=== PATIENT | female | born 1995 | race Caucasian/White ===

== ENCOUNTER 2018-05-07 12:58 | Inpatient (IN) | payer OTHER, MEDICAID, SELFPAY ==
[2018-05-07] VITALS (7 sets, daily range): BP systolic 92–116; BP diastolic 59–75; PULSE 51–59; RESP 12–17; TEMP 36.3–36.6; O2SAT 96–99
--- NOTE | 2018-05-07 14:22 | PM.PREOP ---
Pre-operative Note Interval Note Pre-op Check: Yes History & Physical exam performed today by Physician Changes: No
[2018-05-07] MEDS: LACTATED RINGERS 1,000 ML 100 ML IV ×3 (14:25→17:00)
[2018-05-07 14:30] LABS: Add Manual Diff / Slide Review NO; Basophils Percent Auto 0.6 % (0-2); Eosinophils Percent Auto 0.1 % (2-4); Hematocrit 34.2 % (36-46); Hemoglobin 11.5 g/dL (12.0-16.0); Lymphocytes Percent Auto 9.9 % (25-40); Mean Corpuscular HGB Conc 33.6 % (30-36); Mean Corpuscular Hemoglobin 29.7 PG (26-34); Mean Corpuscular Volume 88.4 fL (80-100); Monocytes Percent Auto 6.1 % (3-14); Neutrophils Absolute Auto 13100 /uL (1500-7000); Neutrophils Percent Auto 83.3 % (50-75); Platelet Count 279 X10^3/uL (150-400); Red Blood Cell Count 3.87 X10^6/uL (4.0-5.2); Red Cell Distribution Width 12.6 % (11.6-14.8); White Blood Cell Count 15.8 X10^3/uL (4.5-11.0)
--- NOTE | 2018-05-07 15:31 | SUR.OPER ---
Viable male born at 15:34. Placenta and cord blood tubes (x2) sent with L&D RN.
[2018-05-07] MEDS: CEFAZOLIN 1 GM VIAL IV (15:42)
--- NOTE | 2018-05-07 16:11 | PM.GYNOP.1 ---
Operative Date/Time/Diagnoses Date of procedure: 05/07/18 Time of procedure: 16:11 Pre-op diagnosis: 37 and 6 7th weeks Persistent breech presentation Spontaneous rupture of membranes Post-op diagnosis: same Procedure: Procedures Operation Date: 05/07/18 15:00 Actual Procedures Side Surgeon p Section Dorene Hutchins MD Indications: 37 and 6 /7th weeks gestation Persistent breech presentation Spontaneous rupture of membranes Surgeon: Dorene Hutchins Anesthesia Type: Spinal (With Duramorph) Operative Notes Closure Type: primary Specimen(s): other (Placenta and cord blood) Applied: catheter Estimated blood loss (mL): 350 Blood products transfused: none Procedure in detail: The patient was taken to the operating room where she was placed in the seated position. Spinal anesthesia was administered. She was then placed in the dorsal supine position with a leftward tilt. She was prepped and draped in the usual sterile fashion. A timeout was performed. After spinal analgesia was found to be adequate, a Pfannenstiel skin incision was made 2 fingerbreadths above the pubic symphysis and carried through to the underlying layer fascia. The fascia was nicked in the midline, and the incision extended bilaterally with the Joseph scissors. The superior aspect of the fascial incision was grasped with a [place] clamps, elevated, and the underlying rectus muscles dissected off sharply and bluntly. Attention was then turned to the inferior aspect of this incision which in a similar fashion was grasped with a [place] clamps, elevated, and the underlying rectus muscles dissected off sharply and bluntly. The rectus muscles were in the midline. The peritoneum was identified, grasped between 2 hemostats, and entered sharply with the Metzenbaum scissors. This incision was extended superiorly and inferiorly with good visualization of the bladder. The bladder blade was inserted. The vesicouterine peritoneum was identified, grasped with the pickup, and entered sharply with the Metzenbaum scissors. This incision was extended bilaterally, and the bladder flap was created digitally. The bladder blade was reinserted. The lower uterine segment was incised in a transverse fashion with the scalpel. Upon entering the amniotic sac there was a small amount of moderate stained amniotic fluid amniotic fluid. The was delivered by total breech extraction The nose and mouth were suctioned with bulb suction. The cord was double clamped and cut. The was handed off to waiting RN and RT. The placenta was delivered manually. The uterus was cleared of all clots and debris. The uterine incision was repaired with #1 chromic in a running interlocking fashion, and a second layer the same suture was used for an imbricating layer. Hemo stasis was achieved. The tubes and ovaries were examined and were found to be normal. The gutters were cleared of all clots and debris. The bladder flap was reapproximated using 2-0 Vicryl in a running fashion. The parietal peritoneum was closed using 2-0 Vicryl in a running fashion. The fascia was reapproximated using 0 Vicryl in a running fashion. Subcutaneous layer was copiously irrigated with warm normal saline. 3 simple interrupted sutures of 3-0 Vicryl were placed to reapproximate the subcutaneous layer. The skin was closed with 4-0 undyed Vicryl in a subcuticular fashion. Steri-Strips were placed. Telfa and ABD were placed. MediPort tape was placed. The uterus was expressed of a small amount of old blood. Sponge, lap, and instrument counts were correct x-2. The patient tolerated the procedure well, and was taken to PACU in stable condition. Complications: none Post-operative Condition: stable Disposition: PACU Plan for aftercare: To Center after recovery
--- NOTE | 2018-05-07 16:39 | SUR.PHASEI ---
stable pacu stay report called to tenisha foster transfered.
--- NOTE | 2018-05-07 16:53 | SUR.PHASEI ---
pt left in stable condition.
[2018-05-07] MEDS: KETOROLAC 30 MG/ML VIAL IV (22:00)
[2018-05-08] MEDS: OXYCODONE/ACETAMINOPHEN 5/325 TABLET 1 TAB PO ×5 (01:35→17:07)
[2018-05-08] MEDS: LACTATED RINGERS 1,000 ML 100 ML IV (01:41)
[2018-05-08] MEDS: KETOROLAC 30 MG/ML VIAL IV ×2 (04:25→09:50)
[2018-05-08 06:49] LABS: Hematocrit 29.9 % (36-46); Hemoglobin 10.1 g/dL (12.0-16.0)
[2018-05-08] MEDS: PRENATAL VIT,CALC/IRON/FOLIC 1 TABLET 1 TAB PO (08:27)
[2018-05-08] MEDS: DOCUSATE 250 MG CAPSULE PO (08:27)
[2018-05-08] MEDS: IBUPROFEN 600 MG TABLET PO (15:58)
[2018-05-09] MEDS: OXYCODONE/ACETAMINOPHEN 5/325 TABLET 1 TAB PO ×2 (01:23→09:35)
[2018-05-09] MEDS: IBUPROFEN 600 MG TABLET PO ×3 (06:20→12:27)
[2018-05-09 09:30] VITALS: BP 107/65; PULSE 84; RESP 16; TEMP 37.1
[2018-05-09] MEDS: DOCUSATE 250 MG CAPSULE PO (09:35)
[2018-05-09] MEDS: PRENATAL VIT,CALC/IRON/FOLIC 1 TABLET 1 TAB PO (09:35)
--- NOTE | 2018-06-07 16:01 | P.DS_ITS ---
Discharge Providers Date of admission: 05/07/18 12:58 Consults: 05/07/18 17:29 Consult to Revival Clerk Routine Comment: Discharge provider: Dorene Hutchins MD Discharge Date: 05/09/18 Summary Date Patient Seen: 05/09/18 Time Patient Seen: 07:45 Hospital Course: Patient is a 23-year-old 1 para 1 who presented on 05/07/2018 with spontaneous rupture of membranes and breech presentation. She underwent a primary low-transverse section. She had meconium- stained amniotic fluid. Her course was unremarkable and she was discharged home on day # 2 tolerating a diet, ambulating, controlling the pain with pain medications, and voiding without the catheter. Peripartum Data Infant Delivery Method: Section (Breech) Laceration description: None Episiotomy description: None Procedures: Primary low transverse section Spinal anesthesia complications: none Status at Discharge Functional status at discharge: independent ambulation Overall status at discharge: patient is progressing back to baseline Time Spent with Patient Total time spent providing and/or coordinating discharge services: Less than 30 minutes Objective Labs Result Diagrams: 05/08/18 06:38 Discharge Plan Discharge Plan Patient Disposition: Home Discharge comment: Call with fever, chills, redness or drainage around incision or bleeding vaginally more than a pad in an hour Discharge Med Rec/Prescriptions Prescriptions: New ibuprofen 600 mg tablet 600 mg PO TID PRN (Reason: pain) Qty: 30 RF: 0 oxycodone-acetaminophen [Percocet] 5-325 mg tablet 1 tab PO Q4-6H PRN (Reason: pain) Qty: 30 RF: 0 Discontinued acyclovir [Zovirax] 400 mg tablet 400 mg PO BID RF: 0 Follow up/Referrals: Dorene Hutchins MD [Physician] - 2 Weeks ('s nurse will call you at home with an appointment for 2 weeks) Provider Discharge Instructions Diet: Diet as Tolerated Activity: No intercourse, no heavy lifting Skin/Wound/Dressing Care Report to your healthcare provider any signs of infection, such as:: chills, fever, increased pain, unusual drainage and unusual redness Dressing: Leave steri strips in place Visit Report/Discharge Packet Instructions: DI for Visit Report Forms: Stroke Signs & Symptoms Discharge Data Attending Provider: Garde,Dorene A Admit Date/Time: 05/07/18 12:58 Discharges patient from system. Discharge Date/Time: 05/09/18 13:00
== END 2018-05-09 13:00 | disposition home or self-care (01) | DRG 540 ==
PROVIDERS: Admitting Provider Obstetrics & Gynecology; Visit Provider Obstetrics & Gynecology
PROC: 10D00Z1 Extraction of Products of Conception, Low, Open Approach (ICD-10-PCS; CPT 59514; principal; 2018-05-07 15:00)
DX: O75.82 Onset (spontaneous) of labor after 37 completed weeks of gestation but before 39 completed weeks gestation, with delivery by (planned) cesarean section (principal); O32.1XX0 Maternal care for breech presentation, not applicable or unspecified; Z37.0 Single live birth; Z3A.37 37 weeks gestation of pregnancy
CPT/HCPCS: 36415; 59050; 59514; 85014; 85018; 85025; 86850; 86870; 86900; 86901; G0379; J0690; J1885; J2274; J2405; J2590